=== PATIENT | male | born 1940 | race Caucasian/White ===

== ENCOUNTER 2017-08-29 09:18 | Outpatient (CLI) | payer OTHER ==
[~2017-08-29 09:18] MED LIST: CORGARD20 MG
== END 2017-08-29 09:24 | disposition home or self-care (01) ==
LOC: LAB 09:18
DX: D64.89 Other specified anemias (principal); N39.0 Urinary tract infection, site not specified; I25.10 Atherosclerotic heart disease of native coronary artery without angina pectoris; E03.8 Other specified hypothyroidism; E29.1 Testicular hypofunction; E55.9 Vitamin D deficiency, unspecified; C61 Malignant neoplasm of prostate

== ENCOUNTER 2018-03-26 08:00 | Outpatient (CLI) | payer OTHER | END 2018-03-26 08:08 | disposition home or self-care (01) | LOC: LAB 08:00 | DX: E11.9 Type 2 diabetes mellitus without complications (principal) ==

== ENCOUNTER 2018-12-09 08:17 | Outpatient (CLI) | payer OTHER | END 2018-12-09 08:25 | disposition home or self-care (01) | LOC: LAB 08:17 | DX: D64.89 Other specified anemias (principal); R68.89 Other general symptoms and signs; N39.0 Urinary tract infection, site not specified; I25.10 Atherosclerotic heart disease of native coronary artery without angina pectoris; E03.8 Other specified hypothyroidism; E29.1 Testicular hypofunction; C61 Malignant neoplasm of prostate; E55.9 Vitamin D deficiency, unspecified ==

== ENCOUNTER 2019-01-04 14:29 | Outpatient (CLI) | payer OTHER | END 2019-01-04 14:32 | disposition home or self-care (01) | LOC: LAB 14:29 | DX: N39.0 Urinary tract infection, site not specified (principal) ==

== ENCOUNTER → 2019-03-05 13:15 | Outpatient (CLI) | payer OTHER | END | disposition home or self-care (01) | LOC: LAB 13:15 | DX: N39.0 Urinary tract infection, site not specified (principal); N41.0 Acute prostatitis ==

== ENCOUNTER 2019-04-19 08:46 | Outpatient (CLI) | payer OTHER | END 2019-04-19 08:55 | disposition home or self-care (01) | LOC: LAB 08:46 | DX: D64.89 Other specified anemias (principal); E11.9 Type 2 diabetes mellitus without complications; E03.8 Other specified hypothyroidism; E78.49 Other hyperlipidemia ==

== ENCOUNTER 2019-05-20 11:19 | Outpatient (CLI) | payer OTHER | END 2019-05-20 11:24 | disposition home or self-care (01) | LOC: LAB 11:19 | DX: N41.0 Acute prostatitis (principal); R82.79 Other abnormal findings on microbiological examination of urine ==

== ENCOUNTER 2021-03-20 14:32 | Emergency (ER) | payer OTHER ==
[~2021-03-20] VITALS: Ht 172.7 cm; Wt 86.2 kg
== END 2021-03-20 19:42 | disposition home or self-care (01) ==
LOC: ER 14:32
DX: J22 Unspecified acute lower respiratory infection (principal); Z11.52 Encounter for screening for COVID-19

== ENCOUNTER → 2021-04-10 08:40 | Outpatient (CLI) | payer OTHER | END | disposition home or self-care (01) | LOC: LAB 08:40 | PROVIDERS: ATTEND Specialist | DX: D64.89 Other specified anemias (principal); E03.4 Atrophy of thyroid (acquired); E11.9 Type 2 diabetes mellitus without complications; Z79.4 Long term (current) use of insulin; E78.49 Other hyperlipidemia; N40.0 Benign prostatic hyperplasia without lower urinary tract symptoms; N39.0 Urinary tract infection, site not specified; R97.20 Elevated prostate specific antigen [PSA] ==

== ENCOUNTER 2022-04-30 08:26 | Outpatient (CLI) | payer OTHER | END 2022-04-30 08:38 | disposition home or self-care (01) | LOC: LAB 08:26 | PROVIDERS: ATTEND Specialist | DX: N40.0 Benign prostatic hyperplasia without lower urinary tract symptoms (principal) ==

== ENCOUNTER 2022-09-30 13:54 | Outpatient (CLI) | payer OTHER | END 2022-09-30 14:02 | disposition home or self-care (01) | LOC: RAD 13:54 | PROVIDERS: ATTEND Specialist | DX: R07.9 Chest pain, unspecified (principal) ==

== ENCOUNTER → 2022-10-01 08:36 | Outpatient (CLI) | payer OTHER | END | disposition home or self-care (01) | LOC: LAB 08:36 | PROVIDERS: ATTEND Specialist | DX: R53.0 Neoplastic (malignant) related fatigue (principal) ==

== ENCOUNTER 2022-11-08 09:00 | Outpatient (CLI) | payer OTHER | END 2022-11-08 09:20 | disposition home or self-care (01) | LOC: LAB 09:00 | DX: R63.4 Abnormal weight loss (principal) ==

== ENCOUNTER 2023-11-04 13:30 | Emergency (ER) | payer OTHER ==
[~2023-11-04] VITALS: Ht 172.7 cm; Wt 83.9 kg
[2023-11-04] MEDS ORDERED: GUAIFENESIN/DEXTROMETHORPHAN 100 MG/5 ML ML PO ONE (16:30)
[2023-11-04 16:50] LABS: HEMATOCRIT 43.8 % (39.0-48.0); HEMOGLOBIN 15.5 g/dL (13-16.00); MEAN CELL VOLUME 92.6 fL (80.0-100.00); MEAN CORPUSCULAR HEMOGLOBIN 32.8 pg (27.00-32.0); MEAN CORPUSCULAR HGB CONC 35.4 g/dl (32.0-36.0); RED BLOOD COUNT 4.73 M/uL (4.00-6.00)
[2023-11-04 16:51] LABS: PLATELET COUNT 116 K/uL (150-450)
[2023-11-04 17:09] LABS: CALCIUM 9.4 mg/dL (8.5-10.1); CREATININE SERUM 0.76 mg/dL (0.70-1.30); GFR 98.43; POTASSIUM 3.7 mEq/L (3.5-5.1)
[2023-11-04] MEDS ORDERED: ZYRTEC10 MG PO (19:13)
[2023-11-04] MEDS ORDERED: DEXAMETHASONE4 MG PO (19:13)
[2023-11-04] MEDS ORDERED: BENZONATATE100 MG PO (19:13)
[2023-11-04] MEDS ORDERED: SINGULAIR10 MG PO (19:13)
== END 2023-11-04 19:40 ==
LOC: ER 13:30
PROVIDERS: Nurse Practitioner Family
DX: J00 Acute nasopharyngitis [common cold] (principal); Z20.822 Contact with and (suspected) exposure to COVID-19